=== PATIENT | male | born 1940 | race Caucasian/White ===

== ENCOUNTER 2023-10-19 12:50 | Emergency (ER) | payer OTHER, SELFPAY ==
[2023-10-19 12:57] VITALS: BP 129/63
[2023-10-19 13:22] LABS: % Basophils 0.4 % (0-2); % Eosinophils 2.2 % (0-6); % Immature Granulocytes 0.4 % (0-0.5); % Lymphocytes 13.1 % (20.5-51.1); % Monocytes 10.3 % (1.7-9.3); % Neutrophils 73.6 % (42.2-75.2); Absolute Eosinophils 0.1 10^3/uL (0-0.7); Absolute Lymphocytes 0.7 10^3/uL (1.2-3.4); Absolute Monocytes 0.6 10^3/uL (0.1-0.6); Hematocrit 33.5 % (39.0-52.0); Hemoglobin 11.5 g/dL (13.0-18.0); Mean Corp Hgb Conc. 34.3 g/dL (33.0-37.0); Mean Corpuscular Hgb 32.1 pg (27.0-31.0); Mean Corpuscular Volume 93.6 fL (80.0-94.0); Mean Platelet Volume 8.9 fL (7.4-10.4); Nucleated Red Blood Cells % 0 % (-); Platelet Count 276 10^3/uL (130-400); Red Blood Cell Count 3.58 10^6/uL (4.70-6.10); White Blood Cell Count 5.4 10^3/uL (4.8-10.8)
[2023-10-19 13:26] LABS: Urine Albumin 3+ (Neg - Trace); Urine Bilirubin Negative (Negative); Urine Character Very Cloudy (Clear); Urine Color Red; Urine Glucose Negative (Negative); Urine Ketone Trace (Negative); Urine Leukocyte 2+ (Negative); Urine Nitrite Negative (Negative); Urine Occult Blood 4+ (Negative); Urine Specific Gravity 1.015 (<1.030); Urine Urobilinogen Negative (Neg - 1+); Urine pH 6.5 (5.0-9.0)
[2023-10-19 13:40] LABS: ALT (SGPT) 16 U/L (0-50); AST (SGOT) 26 U/L (17-59); Albumin 4.5 g/dl (3.5-5.0); Alkaline Phosphatase 64 U/L (38-126); Blood Urea Nitrogen 29 mg/dl (9-20); Calcium 9.7 mg/dl (8.4-10.2); Carbon Dioxide 25 mmol/L (22-30); Chloride 104 mmol/L (98-107); Glucose 105 mg/dl (70-99); Potassium 4.8 mmol/L (3.5-5.1); Sodium 136 mmol/L (135-145); Total Bilirubin 0.5 mg/dl (0.2-1.3); eGFR > 60.00
[2023-10-19 13:58] LABS: Urine Bacteria Few (Negative); Urine Red Blood Cell >100 /HPF (0-2); Urine Squamous Cell 0-2 /LPF (Few)
[2023-10-19 14:01] LABS: Total Protein 7.2 g/dl (6.3-8.2)
[2023-10-19 15:27] VITALS: BP 142/65
[2023-10-19 15:45] VITALS: BP 142/65; BMI 27.2
--- NOTE | 2023-10-19 15:53 | ED.GENMED ---
History of Present Illness
<Geovanni Murrell, DO - Last Filed: 10/19/23 15:58>
General
Chief Complaint: Male Genito-Urinary Symptoms
Time Seen by Provider: 10/19/23 15:28
<Nikki Bridges MD, Resident - Last Filed: 10/19/23 18:12>
History of Present Illness
History of Present Illness:
83-year-old male with history of prostate cancer, status post on radiation presenting with hematuria that began this morning. He is under the care of Dr. Cagle at [facility]. The patient also reports burning and pain with urination that started
last week along with sensation of incomplete bladder emptying. This morning he noticed clots in his urinary stream. He reports of blood present from the start of his stream. He denies any fever or chills
Past History
<Nikki Bridges MD, Resident - Last Filed: 10/19/23 18:12>
Past History
ED Past Medical History: CAD, HTN, Hypercholesterolemia, MD and Hypothyroidism
ED Past Surgical History: Cardiac (cabg)
Social History
Personal:
Living: with family
Employment: Retired
Review of Systems
<Nikki Bridges MD, Resident - Last Filed: 10/19/23 18:12>
Review of Systems
: Reports dysuria, incontinence, difficulty voiding and bleeding
Phy Exam
<Nikki Bridges MD, Resident - Last Filed: 10/19/23 18:12>
General Physical Exam
General Presentation: well appearing and no apparent distress
General Habitus: normal
General Mental: alert
General Hydration: appears well hydrated
Eye Exam
Eye Exam: PERRL
Cardiovascular Exam
Cardiovascular Exam: regular rate/rhythm and no murmur
Pulmonary Exam
Pulmonary Exam: lungs clear
Gastrointestinal Exam
Gastrointestinal Exam: normal bowel sounds, non distended and tender (left upper quadrant pain not radiating to flank or back)
Neurological Exam
Neurological Exam: alert and oriented x3
Course
<Geovanni Murrell, DO - Last Filed: 10/19/23 15:58>
Orders/Labs/Results
Orders:
Orders
10/19/23 13:11
Complete Blood Count/With Diff Urgent
Comprehensive Metabolic Panel Urgent
Urine Culture Reflexed from UA [Urinalysis Reflex To Culture] Urgent
Date Specimen was Collected: 10/19/23
Time Specimen was Collected: 13:02
Urine Microscopic Reflex Cult Urgent
Urine Culture Urgent
KARON Source: U
Specimen Description:
Date Specimen was Collected: 10/19/23
Time Specimen was Collected: 13:02
10/19/23 15:48
Phenazopyridine HCl [Pyridium] 100 mg PO NOW STA
10/19/23 15:49
CT Abd/pel Without Iv Or Oral Urgent
Comment:
Reason For Exam: left flank pain, hematuria
Abnormal Lab Results
10/19/23
13:11
RBC 3.58 L 10^6/uL
(4.70-6.10)
Hgb 11.5 L g/dL
(13.0-18.0)
Hct 33.5 L %
(39.0-52.0)
MCH 32.1 H pg
(27.0-31.0)
Absolute Lymphs (auto) 0.7 L 10^3/uL
(1.2-3.4)
Lymphocytes % 13.1 L %
(20.5-51.1)
Monocytes % 10.3 H %
(1.7-9.3)
BUN 29 H mg/dl
(9-20)
Glucose 105 H mg/dl
(70-99)
Urine Ketones Trace A
(Negative)
Ur Occult Blood Reflex 4+ A
(Negative)
Leukocyte Esterase Rfl 2+ A
(Negative)
Urine RBC >100 A /HPF
(0-2)
Urine Bacteria (Reflex) Few A
(Negative)
Urine Albumin (Reflex) 3+ A
(Neg - Trace)
10/19/23 13:11
10/19/23 13:11
Vital Signs
Initial and Last Documented VS:
Initial Vital Signs
Temp Pulse Resp BP Pulse Ox
98.3 F 72 20 129/63 97
10/19/23 12:57 10/19/23 12:57 10/19/23 12:57 10/19/23 12:57 10/19/23 12:57
Last Documented Vital Signs
Temp Pulse Resp BP Pulse Ox
98.1 F 65 16 142/65 97
10/19/23 15:45 10/19/23 15:45 10/19/23 15:45 10/19/23 15:45 10/19/23 15:45
<Nikki Bridges MD, Resident - Last Filed: 10/19/23 18:12>
Orders/Labs/Results
Orders:
Orders
10/19/23 13:11
Complete Blood Count/With Diff Urgent
Comprehensive Metabolic Panel Urgent
Urine Culture Reflexed from UA [Urinalysis Reflex To Culture] Urgent
Date Specimen was Collected: 10/19/23
Time Specimen was Collected: 13:02
Urine Microscopic Reflex Cult Urgent
Urine Culture Urgent
KARON Source: U
Specimen Description:
Date Specimen was Collected: 10/19/23
Time Specimen was Collected: 13:02
10/19/23 15:48
Phenazopyridine HCl [Pyridium] 100 mg PO NOW STA
10/19/23 15:49
CT Abd/pel Without Iv Or Oral Urgent
Comment:
Reason For Exam: left flank pain, hematuria
Abnormal Lab Results
10/19/23
13:11
RBC 3.58 L 10^6/uL
(4.70-6.10)
Hgb 11.5 L g/dL
(13.0-18.0)
Hct 33.5 L %
(39.0-52.0)
MCH 32.1 H pg
(27.0-31.0)
Absolute Lymphs (auto) 0.7 L 10^3/uL
(1.2-3.4)
Lymphocytes % 13.1 L %
(20.5-51.1)
Monocytes % 10.3 H %
(1.7-9.3)
BUN 29 H mg/dl
(9-20)
Glucose 105 H mg/dl
(70-99)
Urine Ketones Trace A
(Negative)
Ur Occult Blood Reflex 4+ A
(Negative)
Leukocyte Esterase Rfl 2+ A
(Negative)
Urine RBC >100 A /HPF
(0-2)
Urine Bacteria (Reflex) Few A
(Negative)
Urine Albumin (Reflex) 3+ A
(Neg - Trace)
10/19/23 13:11
10/19/23 13:11
Vital Signs
Initial and Last Documented VS:
Initial Vital Signs
Temp Pulse Resp BP Pulse Ox
98.3 F 72 20 129/63 97
10/19/23 12:57 10/19/23 12:57 10/19/23 12:57 10/19/23 12:57 10/19/23 12:57
Last Documented Vital Signs
Temp Pulse Resp BP Pulse Ox
98.1 F 65 16 142/65 97
10/19/23 15:45 10/19/23 15:45 10/19/23 15:45 10/19/23 15:45 10/19/23 15:45
<Nikki Bridges MD, Resident - Last Filed: 10/19/23 18:12>
*Critical Care Note
Total Time (30-74mins, 75-104mins- exclusive of procedures): Not Applicable
<iNkki Bridges MD, Resident - Last Filed: 10/19/23 18:12>
Update Note
Update Note:
83-year-old male presented to the ED with hematuria. Patient complains of clots in his urine with dysuria. Differential diagnosis #1 prostatitis #2 UTI #[address] scan abdomen pelvis, If the CT scans are negative then we will treat him for prostatitis with antibiotics. Gave him Pyridium PO for pain. Starting patient on levofloxacin 500 mg once a day for 7 days. Advised patient to follow-up with
family doctor and urologist..
CT of the abdomen/pelvis
IMPRESSION:
1. Moderate diffuse thickening and irregularity of the urinary bladder wall with mild perivesical inflammation suggesting ACUTE CYSTITIS.
2. Radiation seeds in the prostate gland for treatment of prostate cancer.
3. Severe diffuse colonic diverticulosis.
4. Moderate distention of the rectum with air and fecal material.
5. Moderate chronic bilateral renal disease.
6. Small hiatal hernia.
7. Mild atrophy of the left lobe of the liver.
8. 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
9. Chronic superior endplate fractures of L1 and L2.
ED Attending Note
<Geovanni Murrell, - Last Filed: 10/19/23 15:58>
ED Attending Note
Patient seen and examined by attending physician: Yes
I performed a history and physical exam of patient and discussed management with resident, I reviewed resident's note and agree with documented findings and plan of care.: Yes
ED Attending Note:
I have seen and evaluated the patient with a [id number] encounter. I have spoken to the resident and involved in the medical history, the physical exam, medical decision making.
Evaluation and management service: agree unless noted differently below.
Results interpretation: agree unless noted differently below.
Focused HPI: 83-year-old male presenting with pain with urination and frequent urination. This been ongoing for the past week but is now developed into bleeding. He is not on blood thinners but he has small clots. He has a history of prostate
cancer in which she received radiation several years ago and hormonal therapy
Physical exam: Sitting bed comfortably. Abdomen soft and nontender
Medical Decision Making: Will obtain CT to look for any evidence of bladder stone. Given his prior history, will treat for likely prostatitis
<Nikki Bridges MD, Resident - Last Filed: 10/19/23 18:12>
-
Portions of this chart may have been created with voice recognition software.� Occasional wrong word or��sound alike� substitutions may have occurred due to the inherent limitations of voice recognition software.
Discharge Plan
Departure
Patient Disposition: Home (Routine Discharge)
Date of Disposition: 10/19/23
Time of Disposition: 18:08
Patient with high blood pressure during this ER visit?: No
Discharge Problem:
Acute hemorrhagic cystitis
Prescriptions:
New
levofloxacin 500 mg tablet
500 mg PO DAILY 6 Days Qty: 6 0RF
No Action
diazepam 5 MG tablet
5 mg PO TIDPRN PRN (Reason: MUSCLE SPASM/TIGHTNESS) Qty: 20 0RF
Referrals:
Major Arenas MD [Family Provider] - Follow up in 2-3 days
Interventions
Interventions:
*Risk Screen - Suicide Last Done: 10/19/23 12:57
*General Assessment Last Done: 10/19/23 12:57
*Neglect/Abuse Screening Last Done: 10/19/23 12:57
ED- Fall Risk Assessment Last Done: 10/19/23 15:45
*ED COVID-19 Vaccine History Last Done: 10/19/23 15:45
ED-Male Genitourinary Assessment Last Done: 10/19/23 15:45
Discharge Date and Time
Print Language: [id number]
[2023-10-19] MEDS: LEVAQUIN 500 MG PO (18:18)
[2023-10-19 18:22] VITALS: BP 126/81
== END 2023-10-19 18:23 | disposition home or self-care (01) ==
LOC: EMR 12:50
PROVIDERS: Emergency Medicine; EMERGENCY PHYSICIAN Student in an Organized Health Care Education/Training Program; FAMILY PHYSICIAN Family Medicine
DX: N30.01 Acute cystitis with hematuria (principal)
CPT/HCPCS: 99284; 74176; 80053; 81003; 81015; 85025; 87086